=== PATIENT | female | born 1935 | race Caucasian/White ===

== ENCOUNTER 2022-08-28 05:04 | Observation (INO) ==
--- NOTE | 2022-08-01 12:37 | PAT Medication Instructions ---
Medication Instructions Date of Service August 01, 2022 Home Medications CoQ-10 1 tab PO QAM acetylcarnitine 500 mg-alpha lipoic acid 200 mg capsule 1 cap PO QAM calcium carbonate 550 mg-magnesium hydroxide 110 mg chewable tablet 2 tab PO Q4H PRN gerd losartan 100 mg tablet 100 mg PO QAM simvastatin 40 mg tablet (Zocor) 40 mg PO QAM vitamin D3 250 mcg (10,000 unit)-vitamin K2 45 mcg capsule 1 cap PO QAM STOP taking 2 weeks before surgery CoQ-10 1 tab PO QAM acetylcarnitine 500 mg-alpha lipoic acid 200 mg capsule 1 cap PO QAM vitamin D3 250 mcg (10,000 unit)-vitamin K2 45 mcg capsule 1 cap PO QAM DO NOT take the morning of surgery calcium carbonate 550 mg-magnesium hydroxide 110 mg chewable tablet 2 tab PO Q4H PRN gerd losartan 100 mg tablet 100 mg PO QAM Take morning of surgery With a small sip of water, OTHERWISE NOTHING TO EAT OR DRINK AFTER MIDNIGHT: simvastatin 40 mg tablet (Zocor) 40 mg PO QAM Take evening before surgery calcium carbonate 550 mg-magnesium hydroxide 110 mg chewable tablet 2 tab PO Q4H PRN GERD (if needed) Other Notes If you have any questions please call us at [phone] or [phone] or [phone] or [phone]
--- NOTE | 2022-08-09 11:36 | Anesthesiology Consultation ---
Date of Service August 09, 2022 Assessment & Plan (1) Encounter for pre-operative examination: Chart Review Chart Review: Acceptable Risk for Surgery and Patient seen in Pre Admission Testing - Check BSG AM DOS (due to hx of hypoglycemia) - Discussed with Dr. Marshall- patient can proceed as scheduled Left limb restriction - Pt is NOT an OPJ candidate due to age and comorbidities - Hx chronic balance issues - fall risk Per PAT appt on 08/09/22, patient denies any recent travel or large group activities. Pt is vaccinated for Covid. Will leave to surgeon's discretion if preop Covid testing needed. Educated on importance of using Covid precautions one week prior to surgery Teaching & Discussion Pre-Anesthesia Teaching/Discussion Notes: Instructed NPO after midnight before surgery,except medications with 15 cc of water. Medication instructions provided according to the [facility] guidelines. History Surgery Operation Date: 08/28/22 08:50 Proposed Procedures p Right Total Hip Arthroplasty Anterior - Wes cOonnor, Height/Weight Height: 4 ft 10 in Weight: 63.5 kg Allergies Allergy/AdvReac Type Severity Reaction Status Date / Time aspirin AdvReac "i'm Verified 07/31/22 10:06 sensitive to aspirin" "nosebleeds" "blood shot eyes" Medications Home Medications Medication Instructions Recorded Confirmed Last Taken CoQ-10 1 tab PO QAM 07/31/22 07/31/22 Unknown acetylcarnitine 500 mg-alpha 1 cap PO QAM 07/31/22 07/31/22 Unknown lipoic acid 200 mg capsule calcium carbonate 550 mg-magnesium 2 tab PO Q4H PRN gerd 07/31/22 07/31/22 Unknown hydroxide 110 mg chewable tablet losartan 100 mg tablet 100 mg PO QAM 07/31/22 07/31/22 Unknown simvastatin 40 mg tablet (Zocor) 40 mg PO QAM 07/31/22 07/31/22 Unknown vitamin D3 250 mcg (10,000 1 cap PO QAM 07/31/22 07/31/22 Unknown unit)-vitamin K2 45 mcg capsule Past Medical History Medical History (Updated 08/09/22 @ 14:45 by Irma Boone PA-C) Deviated nasal septum No breathing issues GERD (gastroesophageal reflux disease) Well controlled and stable Hearing deficit BL MORRIS History of hypoglycemia Usually in the morning - improved after drinking protein shake HLD (hyperlipidemia) HTN (hypertension) Limb alert care status LUDeborah Snores No witnessed apnea- no hx of sleep study 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 seen by vascular 10-15 years ago- to follow up PRN- no current symptoms Urinary incontinence Exercise / Class Metabolic Activity III < 4 Walking/Shop/Light housework (no chest pain or SOB with flat surface, short distance ambulation- uses walker/cane due to hip pain ) Past Family History Family History Other No family history of adverse response to anesthesia Past Surgical History Surgical History History of D&C History of total abdominal hysterectomy and bilateral salpingo-oophorectomy Past Anesthesia History No Hx of Anesthesia Complications and No Family Hx of Anesthesia Complications History of PONV No Hx of Motion Sickness and History of PONV (significant PONV after hysterectomy - feels more due to pain medication ) Social History Smoking Status: Never smoker Do You Dip or Chew Tobacco: No Hx Alcohol Use: No Hx Substance Use: No substance use type: does not use Review of Systems - Hx of unresponsiveness >6 years ago- sent to [facility]- MRI showed no stroke, EEG WNL; unsure if reaction due to flu vaccine (no issues since) Patient denies chest pain, shortness of breath, dyspnea on exertion, cough, wheezing, palpitations. No known hx of seizures, stroke, CA. No hx of blood clots or blood transfusions Physical Exam Vital Signs VITALS BP 149/76 P 84 TEMP 98.1 SP02 94% RESP 16 Constitutional no acute distress ENMT Mouth: no TMJ clicking Thyromental Distance: > or= 3.5 Finger Breadths (3.5) Mallampati Class: II (smaller airway ) Top and bottom full dentures Neck + limited neck extension (minimal) Respiratory normal respiratory effort; no respiratory distress Auscultation: lungs clear to auscultation bilaterally; no wheezes Cardiovascular Rate/Rhythm: regular rate and regular rhythm Heart Sounds: no murmur Vessels: + carotid bruit (faint bruit right side ) Musculoskeletal Spine: no pain with cervical ROM Extremities: extremities normal to inspection Psychiatric Orientation: alert Lab Results Anesthesia Preop Results Results Anesthesia Widget: WBC 5.45 K/ul (4.8-10.8) 08/09/22 Hgb 13.7 g/dl (12.0-16.0) 08/09/22 Hct 41.6 % (37.0-47.0) 08/09/22 Plt 242 K/uL (130-400) 08/09/22 Na 141 mmol/L (136-145) 08/09/22 K 4.0 mmol/L (3.5-5.1) 08/09/22 Cl 107 mmol/L (98-107) 08/09/22 CO2 26 mmol/L (21-32) 08/09/22 BUN 37 mg/dl (6-23) H 08/09/22 Creat 0.73 mg/dl (0.6-1.2) 08/09/22 Glucose Level 86 mg/dl (70-99(Fasting)) 08/09/22 PT 11.3 Seconds (9.0-12.0) 08/09/22 PTT 28.1 Seconds (21.0-31.0) 08/09/22 INR 1.0 (0.9-1.1) 08/09/22 Blood Type O Positive 08/09/22 Antibody Screen NEGATIVE 08/09/22 Testing Electrocardiogram Date: 08/09/22 Findings: + NSR @ (74bpm ) Nonspecific ST abnormality Chest X-Ray Date: 08/09/22 Findings: + NAD FINDINGS: PA and lateral chest radiographs are obtained. No prior studies are available for comparison at the time of dictation. The cardiomediastinal tracey houette is unremarkable noting atherosclerotic calcification of the thoracic aorta. There is mild bibasilar scarring/atelectasis. The lungs and pleural spaces are otherwise clear. There is no pneumothorax. The skeletal structures are osteopenic. The bony thorax appears intact. IMPRESSION: No active disease in the chest. COVID-19 Risk Screen Screening Information COVID-19 Screen Date: 08/09/22 Exposure 21 Days Family/Household +COVID Last 21 Days: No Exposure 10 Days Any COVID Exposure Last 10 Days: No Symptoms Last 10 Days Experienced COVID Sx Last 10 Days: No + COVID 0-90 Days COVID + in Last 0-90 Days: No Risk Plan COVID Risk Plan: No Risk Identified Patient Education COVID Preop Screening Education Complete: Yes
[2022-08-28] MEDS ORDERED: LR 500ML BOLUS, THEN 15ML/HR IV SCH (06:00)
[2022-08-28] MEDS ORDERED: LR 60ML/HR IV SCH (06:00)
[2022-08-28] MEDS ORDERED: dexAMETHasone 4 MG TAB PO SCH (06:00)
[2022-08-28] MEDS ORDERED: ORTHO JOINT MIX INFIL SCH (06:00)
[2022-08-28] MEDS ORDERED: TRANEXAMIC ACID 1,000 MG **IV Intra-op IV SCH (06:00)
[2022-08-28] MEDS ORDERED: GABAPENTIN 300 MG CAP PO SCH (06:00)
[2022-08-28] MEDS ORDERED: ACETAMINOPHEN 500 MG TAB PO SCH (06:00)
[2022-08-28] MEDS ORDERED: TRANEXAMIC ACID 1,000 MG **IV Pre-op IV SCH (06:00)
[2022-08-28] MEDS ORDERED: FAMOTIDINE 20 MG TAB PO SCH (06:00)
[2022-08-28] MEDS ORDERED: BUPIVACAINE 0.5 % 5 MG/1 ML PF 10ML VIAL ONE (06:16)
[2022-08-28] MEDS ORDERED: ORTHO JOINT ANESTHETIC ONE (06:35)
[2022-08-28] MEDS ORDERED: MIDAZOLAM HCL 1 MG/ML 2ML VIAL ONE (06:42)
[2022-08-28] MEDS ORDERED: fentaNYL citrate PF 100 MCG/2 ML VIAL IV PRN (06:45)
[2022-08-28] MEDS ORDERED: ePHEDrine sulfate 50 MG/ML AMP IV PRN (06:45)
[2022-08-28] MEDS ORDERED: ATROPINE SULFATE 0.1 MG/ML 10ML SYR IV PRN (06:45)
[2022-08-28] MEDS ORDERED: ONDANSETRON INJ 2 MG/ML 2 ML VIAL IV PRN ×2 (06:45→10:19)
--- NOTE | 2022-08-28 06:48 | History & Physical Report ---
Date of Service August 28, 2022 Assessment & Plan (1) Osteoarthritis of right hip: We will proceed with a right anterior total of arthroplasty. Postoperatively she will likely be started on aspirin for DVT prophylaxis and kept overnight in the hospital for postop medical management. She plans to have the hospital set up home health in [place] upon discharge. History of Present Illness Chief Complaint: Osteoarthritis of the right hip. Primary Care Provider: Jeevan Colmenares DO Tona is a pleasant 87-year-old female who still lives alone. She has been dealing with chronic worsening right hip and knee pain. The pain starts in her hip and radiates down her thigh to her knee. She saw another provider. She had an MRI of her right hip and her right knee. Imaging studies show advanced arthritis of the right hip and arthritis with a meniscus tear of the right knee. She is using a cane to ambulate. She has trouble getting in and out of a car. It is really affecting her quality of life. After failing conservative treatment, she has elected proceed with a right total hip arthroplasty.. Allergies Allergy/AdvReac Type Severity Reaction Status Date / Time aspirin AdvReac "i'm Verified 08/28/22 05:31 sensitive to aspirin" "nosebleeds" "blood shot eyes" Home Medications Medication Instructions Recorded Confirmed Type CoQ-10 1 tab PO QAM 07/31/22 08/28/22 History acetylcarnitine 500 mg-alpha 1 cap PO QAM 07/31/22 08/28/22 History lipoic acid 200 mg capsule calcium carbonate 550 mg-magnesium 2 tab PO Q4H PRN gerd 07/31/22 08/28/22 History hydroxide 110 mg chewable tablet losartan 100 mg tablet 100 mg PO QAM 07/31/22 08/28/22 History simvastatin 40 mg tablet (Zocor) 40 mg PO QAM 07/31/22 08/28/22 History vitamin D3 250 mcg (10,000 1 cap PO QAM 07/31/22 08/28/22 History unit)-vitamin K2 45 mcg capsule Past Med/Surg History Medical History Deviated nasal septum No breathing issues GERD (gastroesophageal reflux disease) Well controlled and stable Hearing deficit BL MORRIS History of hypoglycemia Usually in the morning - improved after drinking protein shake HLD (hyperlipidemia) HTN (hypertension) Limb alert care status LUE Snores No witnessed apnea- no hx of sleep study 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 seen by vascular 10-15 years ago- to follow up PRN- no current symptoms Urinary incontinence Surgical History History of D&C History of total abdominal hysterectomy and bilateral salpingo-oophorectomy Family History Other No family history of adverse response to anesthesia Social History Smoking Status: Never smoker Second Hand Exposure: No; Do You Dip or Chew Tobacco: No; Hx Alcohol Use: No Hx Substance Use: No Preferred Language: Spanish Communication Ability: Effective 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 Physical Exam On physical examination of the right hip, she has decreased range of motion. She has pain with forced internal and external rotation.. Constitutional WD/WN, vitals as above Eyes PERRL, conjunctivae normal, anicteric sclerae ENMT external ear and nose normal, oropharynx normal Neck trachea midline, no thyromegaly Respiratory normal respiratory effort, lungs clear to auscultation Cardiovascular RRR, no murmur, no edema Gastrointestinal (Abdomen) normal bowel sounds, soft, nontender, no hepatosplenomegaly Skin no rashes, warm and dry Psychiatric A+Ox3, euthymic affect Results & Data Results & Data Laboratory Results . Diagnostic Findings X-rays and MRI of the right hip show advanced osteoarthritis with joint space narrowing, osteophyte formation, and [id number] articulation PG Care Time/CCT Total # of Minutes Spent Total Time Spent with Patient: Total time spent is greater than 50% in coordination of care (as documented) at patient's floor/unit and/or counseling patient: Coding Level of Care Code None Diagnoses Osteoarthritis of right hip M16.11
[2022-08-28] MEDS: ceFAZolin 2000MG 2,000 MG/15 ML SYR IV SCH ×4 (06:54→22:55)
[2022-08-28] MEDS ORDERED: PROPOFOL IV EMULSION 10 MG/ML 20 ML VIAL IV ONE (07:53)
[2022-08-28] MEDS ORDERED: ePHEDrine sulfate 50 MG/ML SYR ONE (07:53)
--- NOTE | 2022-08-28 09:23 | XRay Report ---
SINGLE VIEW PELVIS; SINGLE VIEW RIGHT HIP CLINICAL HISTORY: Postoperative examination. FINDINGS: An AP portable view of the hips and lower pelvis with a crosstable lateral portable view of the right hip are compared to study dated 07/04/2022. A bipolar right hip arthroplasty is in near-tanya tomic alignment. A single cortical lag screw transfixes the acetabular cup. No acute fracture is iden tified. There are expected postoperative changes overlying the right hip including skin clips, subcut aneous gas, and soft tissue swelling. IMPRESSION: Expected postoperative findings status post right hip arthroplasty. No acute fracture is seen. ACT 112: Negative or not required by law. Electronically signed by: Kenji Carter M.D. 08/28/2022 9:21 AM
--- NOTE | 2022-08-28 09:44 | Operative Report ---
PG Post Operative Report Pre & Post Diagnosis Operation Date: 08/28/22 07:00 Pre-Op Diagnosis: Right Hip Degenerative Joint Disease Post-Op Diagnosis: Right Hip Degenerative Joint Disease I identified the patient and participated in the time-out.: Yes Procedure Operation Date: 08/28/22 07:00 Actual Procedures p Right Total Hip Arthroplasty Anterior(Right) - Wes Oconnor DO Surgeon Wes Oconnor DO Fermenter Operator Wes Bermudez PA-C Estimated Blood Loss 150 Findings Consistent with Post-Op Diagnosis Specimens Right femoral head Description of Procedure Implants used I used a ZimmerBiomet total hip arthroplasty system with a size 5 standard offset Avenir Complete stem, a 48 mm G7 cup with a 25mm screw, an E1 polyet hylene liner, a 32 mm ceramic head with a +3.5 neck. Tona arrived at the hospital for the above procedure. She was seen in the preoperative holding area and the operative extremity was identified and signed. She was given a spinal anesthetic, a preoperative antibiotic, and TXA. She was then taken back to the operating room and laid on the table in the supine position. She was given basic sedation. The operative leg was secured to a Puristst leg positioner. The hip was then prepped and draped in sterile fashion. A timeout was done and the patient and the operative extremity was properly identified. An anterior approach was used. Dissection was taken down through the fascia and the tensor muscle belly was retracted laterally and the rectus was retracted medially. The circumflex vessels were identified and ligated. The capsule was then incised and tagged for later repair. The femoral neck was then cut and the femoral head was removed. The acetabulum was exposed. Time was spent doing a complete circumferential labral release. Sequential reaming of the acetabulum up to a size 47 reamer was done. Final reamings were done under fluoroscopy to ensure appropriate version. A Biomet 48 mm G7 cup was then impacted into place. A single 25 mm screw was placed. The E1 polyethylene liner was then snapped into place. Surrounding soft tissues were then injected with 100 cc of an orthopedic pain control cocktail. The proximal femur was then exposed. Sequential broaching up to a size 5 broach was done. Off that broach a size 32 head with a +3.5 neck was trialed. The hip was reduced and fluoroscopic images showed anatomic alignment of the implants in acceptable length. The broach was removed. The final size 5 standard offset Avenir Complete stem was then impacted into place. A ceramic 32 mm head with a +3.5 neck was then impacted onto the stem and the hip was reduced. Final fluoroscopic images showed anatomic alignment of the hip. The capsule was then closed with #1 Vicryl suture. A dilute betadyne lavage was then done for 3 minutes. The joint was then irrigated with normal saline solution. The fascia was closed with #1 PDS suture. Skin was closed with 2-0 Vicryl, ton, and a Silverlon dressing. She was then transferred to a hospital bed and taken to the post anesthesia care unit in stable condition. She tolerated the procedure well. Wes Bermudez PA-C, was present for the entire procedure. He was critical for patient positioning, prepping, draping, retraction exposure, wound closure and application of sterile dressing. I attest to the content of the Intraoperative Record and any orders documented therein. Any exceptions are noted below.
--- NOTE | 2022-08-28 10:04 | Anesthesiology Progress Note ---
Date of Service August 28, 2022 Anesthesia Post Procedure Vital Signs Vital Signs: Temp Pulse Pulse Resp BP Pulse Ox O2 Del Method 08/28/22 09:55 97.5 F L 76 12 103/68 96 Nasal Cannula 08/28/22 09:25 76 11 L 117/63 95 Nasal Cannula 08/28/22 09:45 80 12 113/64 92 Nasal Cannula 08/28/22 09:35 81 14 106/61 97 Nasal Cannula 08/28/22 09:15 78 12 101/59 L 96 Nasal Cannula 08/28/22 09:05 75 12 105/60 97 Nasal Cannula 08/28/22 08:55 79 15 107/64 95 Nasal Cannula 08/28/22 08:45 80 14 110/59 L 96 Nasal Cannula 08/28/22 08:35 78 18 115/63 96 Oxymask 08/28/22 08:25 97.5 F L 79 14 103/58 L 95 Oxymask 08/28/22 05:33 97.9 F 76 20 150/72 H 96 Room Air O2 Flow Rate 08/28/22 09:55 2 08/28/22 09:25 2 08/28/22 09:45 2 08/28/22 09:35 2 08/28/22 09:15 2 08/28/22 09:05 2 08/28/22 08:55 2 08/28/22 08:45 3 08/28/22 08:35 6 08/28/22 08:25 6 08/28/22 05:33 Pain Intensity Right Hip: Pain Intensity: 3 Transfer of Care Handoff Completed per policy Notes Mental Status: alert / awake / arousable and participated in evaluation Patient Amnestic to Procedure: Yes Nausea / Vomiting: adequately controlled Pain: adequately controlled Airway Patency, RR, SpO2: stable & adequate BP & HR: stable & adequate Hydration State: stable & adequate Neuraxial Anesthesia: was administered and sensory block is resolving Anesthetic Complications: no major complications apparent and Pt Satisfied with anesthetic care
[2022-08-28] MEDS ORDERED: METOCLOPRAMIDE HCL INJ 5 MG/ML 2 ML VIAL IV PRN (10:19)
[2022-08-28] MEDS ORDERED: HYDROmorphone INJ 0.5 MG/0.5 ML SYR IV PRN (10:19)
[2022-08-28] MEDS ORDERED: bisacodyL 10 MG SUPP PR PRN (10:19)
[2022-08-28] MEDS ORDERED: NALOXONE HCL 0.4 MG/1 ML VIAL/CARP IV PRN (10:19)
[2022-08-28] MEDS ORDERED: MAGNESIUM HYDROXIDE SUSP 30 ML UDC PO PRN (10:19)
[2022-08-28] MEDS ORDERED: oxyCODONE HCL IR 5 MG TAB (IMMEDIATE RELEASE) PO PRN (10:19)
[2022-08-28] MEDS: SODIUM CHLORIDE 0.9% 1000ML 1,000 ML IV SCH ×2 (11:25→20:30)
--- NOTE | 2022-08-28 11:35 | Fluoroscopy Report ---
FL hip RT 1V CLINICAL HISTORY: RT ANTERIOR HIP COMPARISON STUDY: Right hip radiographs July 04, 2022. FLUOROSCOPY TIME: 19 seconds. Ka, r: 1.9665 mGy FLUOROSCOPIC IMAGES: 1 FINDINGS: Fluoroscopy was provided during anterior total right hip arthroplasty. Hardware is intact. No fracture is identified by fluoroscopy. There is an acetabular screw. There are no unexpected radio paque foreign bodies. IMPRESSION: Fluoroscopy provided during total right hip arthroplasty. ACT 112: Negative or not required by law. Electronically signed by: Neftaly Ayala M.D. 08/28/2022 11:34 AM
[2022-08-28] MEDS: ASPIRIN 81 MG ECTAB PO SCH ×2 (11:45→20:29)
[2022-08-28] MEDS: KETOROLAC TROMETHAMINE 15 MG/ML VIAL IV SCH ×3 (11:46→22:55)
[2022-08-28] MEDS: DOCUSATE SODIUM 100 MG CAP PO SCH ×2 (11:46→20:31)
[2022-08-28] MEDS: MULTIVITAMIN TAB PO SCH (11:46)
[2022-08-28] MEDS: LOSARTAN POTASSIUM 50 MG TAB PO SCH (15:48)
[2022-08-28] MEDS: ACETAMINOPHEN 500 MG TAB PO SCH ×2 (15:48→21:58)
[2022-08-28] MEDS ORDERED: SENNA 8.6 MG TAB PO SCH (21:00)
[2022-08-28] MEDS ORDERED: SIMVASTATIN 40 MG TAB PO SCH (21:00)
[2022-08-29] MEDS: ACETAMINOPHEN 500 MG TAB PO SCH (05:49)
[2022-08-29] MEDS: KETOROLAC TROMETHAMINE 15 MG/ML VIAL IV SCH (05:49)
--- NOTE | 2022-08-29 06:36 | Orthopedic Progress Note ---
Date of Service August 29, 2022 Assessment & Plan (1) Status post right hip replacement: Overall she is doing very well. She is not having much pain in the right hip. She will be seen by physical therapy today for ambulation and range of motion exercises. She is on aspirin for DVT prophylaxis. She can be discharged home later today. She will follow-up orthopedics in 2 weeks. Deepak Carbone was seen and examined at bedside this morning. Overall she is doing very well. She is not having much pain in the right hip. She has been up and ambulating to the bathroom. She has no complaints.. Review of Systems All systems reviewed & are unremarkable except as noted in HPI & below. Physical Exam On physical examination of the right hip, the dressing is clean and dry. Her leg is out full extension. She has active dorsiflexion plantarflexion of her right ankle.. Results & Data Results & Data Laboratory Results . Diagnostic Findings Postoperative x-rays of the right hip show the prosthesis to be in anatomic alignment without any evidence of fracture complication, or loosening.. PG Care Time/CCT Total # of Minutes Spent Total Time Spent with Patient: Total time spent is greater than 50% in coordination of care (as documented) at patient's floor/unit and/or counseling patient: Coding Level of Care Code 61473 Post Operative Follow-Up Diagnoses Status post right hip replacement Z96.641
--- NOTE | 2022-08-29 06:44 | Discharge Summary ---
Date of Service August 29, 2022 Admission HPI (Per Admitting) Tona is a pleasant 87-year-old female who still lives alone. She has been dealing with chronic worsening right hip and knee pain. The pain starts in her hip and radiates down her thigh to her knee. She saw another provider. She had an MRI of her right hip and her right knee. Imaging studies show advanced arthritis of the right hip and arthritis with a meniscus tear of the right knee. She is using a cane to ambulate. She has trouble getting in and out of a car. It is really affecting her quality of life. After failing conservative treatment, she has elected proceed with a right total hip arthroplasty.. Admission Exam (Per Admitting) On physical examination of the right hip, she has decreased range of motion. She has pain with forced internal and external rotation.. Principal Diagnosis Same as "Discharge Diagnosis" noted below under Discharge Instructions. Discharge Exam On physical examination of the right hip, the dressing is clean and dry. Her leg is out full extension. She has active dorsiflexion plantarflexion of her right ankle.. Discharge Data Procedures Performed Operation Date: 08/28/22 07:00 Actual Procedures p Right Total Hip Arthroplasty Anterior(Right) - Wes Oconnor DO Ordered Studies 08/28/22 07:00 FL hip RT 1V Routine Hospital Course (1) Status post right hip replacement: On August 28, 2022 Tona arrived at [facility] and underwent a right hip replacement without complication. She had a spinal anesthetic. Postoperatively she was started on aspirin for DVT prophylaxis and transferred to the general orthopedic floors. Her hospital course was uneventful. On po stop day #1, her vital signs were stable and her pain was well controlled. She was able to participate well with physical therapy doing ambulation and range of motion exercises. She was then discharged home. She will follow-up with orthopedics in 2 weeks. PG Care Time/CCT Total # of Minutes Spent Total Time Spent with Patient: Total time spent is greater than 50% in coordination of care (as documented) at patient's floor/unit and/or counseling patient: Discharge Plan Discharge Items Patient Disposition: Home - Home Health Services Reason For Visit: Right Hip Degenerative Joint Disease Discharge Diagnosis: Right hip replacement Activity: As commented below Non-emergency contact: Surgeon Call non-emergency contact if: your wound has increased redness and your wound has increased drainage Follow-up/Referrals: Jeevan Colmenares DO [Primary Care Provider] - Diet: Regular Addtl Attending Provider Instructions: Activity and Therapy Recommendations: * If you are using [facility] then therapy will be provided at your home until they feel you have accomplished all of your goals. * If you are using [facility] then Physical Therapy will be provided until they feel you are ready to start Outpatient Physical Therapy. * If you are not using home therapy then Outpatient Physical Therapy should start about 3-5 days from your day of surgery. Therapy will last about 6-10 weeks * You were shown a series of exercises in the hospital. Do these exercises three times each day including the exercises you were shown in physical therapy. * Get up and walk several times each day.~ For the first four weeks, try not to stand or walk for more than one hour at a time. If you do stand or walk for more than one hour, you will not hurt anything, but your leg will likely swell.~~ * As you feel comfortable, you may change from the walker or crutches to a cane and~then to independent walking. Medications: * Narcotic You will likely be sent home from the hospital with a prescription for the narcotic pain medication that worked best throughout your stay. * Aspirin Most patients will be required to take Aspirin 81mg twice a day for 6 weeks after surgery. This is obtained [id number] and a prescription is not necessary. * Other medications may be prescribed for specific circumstances. If you have any questions, please call the office at . * Resume previous home medications unless otherwise instructed TEDs/Elastic Stockings: The white elastic stockings help limit swelling and prevent blood clots from forming in your legs. The more you wear them, the more they work. Wear them for six weeks. Dressing Care: Leave the Silverlon dressing in place for 7 days. After 7 days you may remove the dressing. If the incision is not draining then you may leave the ton open to air. If there is a little bit of drainage or if the ton are getting stuck on your clothing then cover the incision with a dry dressing. The ton will be removed at your 2 week follow-up appointment. Showering: You may shower with the Silverlon dressing in place. Do not let the shower s pray hit the dressing directly. Pat the Silverlon dressing dry. If the dressing becomes wet underneath, then simply remove the dressing. Keep the incision dry until you are 7 days out from the day of surgery. After 7 days you may remove the Silverlon dressing and shower with the ton exposed. Let soapy water run over the ton and pat them dry. Do not scrub or soak the incision. Things To Watch For: * Drainage from the incision site that occurs more than one week after your surgery. * Increased redness at the incision site. * Fever above 102 degrees Fahrenheit. * Unusual chest pain or shortness of breath. * Call [facility] at with any of the above problems Follow-Up Visit: Follow-up with Dr. Oconnor's PA (Wes Bermudez) 2-3 weeks after your day of surgery. He will remove your ton and answer any questions. If you have any additional questions or concerns, Dr Oconnor is usually in the o ffice at the same time and will be available An appointment was probably scheduled when you signed-up for surgery in the office. If you have any questions call Office Instructions: More detailed instructions as well as Frequently Asked Questions were provided in a folder by our office when you signed-up for surgery. Please review these instructions when you get home. If you have any further questions or concerns, please feel free to call the office at [phone] Pending Studies at Discharge: No Stand-Alone Forms: My [facility], Smoking Cessation Medications and DC Order Prescriptions: New aspirin 81 mg Tablet,Delayed Release (Dr/Ec) 81 mg PO BID 42 Days Qty: 84 0RF tramadol 50 mg tablet 50 mg PO Q6H PRN (Reason: pain) Qty: 30 0RF Continued simvastatin [Zocor] 40 mg Tablet 40 mg PO QAM losartan 100 mg Tablet 100 mg PO QAM Rolaids 550-110 mg Tablet,Chewable 2 tab PO Q4H PRN (Reason: gerd) [id number] Lipoic Acid 500-200 mg Capsule 1 cap PO QAM vitamin D3-vitamin K2 250 mcg (10,000 unit)-45 mcg Capsule 1 cap PO QAM CoQ-10 1 tab PO QAM Admission Data Admit Date/Time: 08/28/22 08:21 Attending Provider: Wes Oconnor Admit Provider: Wes Oconnor Primary Care Provider: Jeevan Colmenares
[2022-08-29] MEDS ORDERED: dexAMETHasone 4 MG TAB PO SCH (08:00)
[2022-08-29] MEDS: MULTIVITAMIN TAB PO SCH (08:03)
[2022-08-29] MEDS: ASPIRIN 81 MG ECTAB PO SCH (08:04)
[2022-08-29] MEDS: LOSARTAN POTASSIUM 50 MG TAB PO SCH (08:04)
[2022-08-29] MEDS: DOCUSATE SODIUM 100 MG CAP PO SCH (08:04)
== END 2022-08-29 11:05 | disposition home health service (06) ==
LOC: 3E 05:04 → ASU 05:04